=== PATIENT | male | born 1985 | race Caucasian/White ===

== ENCOUNTER → 2020-04-17 09:02 | Outpatient (BNVA) | payer MEDICAID, SELFPAY | PROVIDERS: Family Provider Internal Medicine; Visit Provider Psychiatry & Neurology Psychiatry | DX: F19.94 Other psychoactive substance use, unspecified with psychoactive substance-induced mood disorder (principal); F15.20 Other stimulant dependence, uncomplicated; F11.10 Opioid abuse, uncomplicated | CPT/HCPCS: 90792 ==

== ENCOUNTER 2020-06-10 08:08 | Emergency (ER) | payer MEDICAID, SELFPAY ==
[2020-06-10 08:10] VITALS: BP 131/95; PULSE 106; RESP 18; TEMP 36.9; O2SAT 97; BMI 25.0
--- NOTE | 2020-06-10 08:16 | XRR_ITS ---
PROCEDURE INFORMATION: Exam: XR Chest, 1 View Exam date and time: 06/10/2020 8:39 AM Age: 34 years old Clinical indication: Chest pain TECHNIQUE: Imaging protocol: XR of the chest Views: Frontal portable semiupright view of the chest. COMPARISON: CR Chest 2 views* [id number] 11/27/2018 4:56 PM FINDINGS: Lungs: The lungs are clear bilaterally. The pulmonary vasculature is normal. Pleural space: No pleural effusion. No pneumothorax. Heart/Mediastinum: The heart is normal in size and contour. Mediastinum: Stable. Bones/joints: Stable. XR/XR chest 1V portable [id number] IMPRESSION: No acute cardiopulmonary abnormality identified.
--- NOTE | 2020-06-10 08:17 | ECG_ITS ---
[facility] Test Date: 2020-06-10 Pat Name: Eugene Naidu Department: Room: Gender: Male Manager Spanish: : 1985 Requested By: Lanny Devine Order Number: [id number] Griffin MD: JORDYN SIMPSON Measurements Intervals [place] Rate: 107 P: 50 ND: 142 QRS: 35 QRSD: 80 T: 13 QT: 288 QTc: 385 Interpretive Statements SINUS TACHYCARDIA ABNORMAL RHYTHM ECG No previous ECG available for comparison Electronically Signed On 06-10-2020 19:15:04 STRIP DEBURRER by JORDYN SIMPSON [id number]
--- NOTE | 2020-06-10 08:18 | W.ED.GENADLT ---
HPI - General Adult General: Chief complaint: Chest Pain Stated complaint: back/chest pain Time Seen by Provider: 06/10/20 08:10 Source: patient Mode of arrival: ambulatory Limitations: no limitations History of Present Illness: HPI narrative: Mr. Naidu is a nice 34-year-old male comes in complaining of chest pain and shortness of breath. Patient admits to recently using methamphetamines has been having these problems ever since. He states that symptoms have been constant for the past 2 days. Patient states that he is never had anything like this before. He is unaware of any aggravating or alleviating factors. Describes the pain as a stabbing pain in his chest. Patient states that he feels nauseated but otherwise denies any diaphoresis, radiation of his pain, vomiting or otherwise. Patient seems somewhat anxious like he could be under the influence of methamphetamines. Associated symptoms: Reports chest pain, dyspnea and nausea; Deny headache(s), rash, palpitations, syncope or vomiting Review of Systems Const: Denies: fever(s) Eyes: Denies: change in vision or blurry vision ENMT: Denies: throat pain, hoarseness or swelling of lips/tongue Card: Reports: chest pain; Denies: palpitations, syncope, pre-syncope or dyspnea on exertion Resp: Reports: dyspnea; Denies: productive cough, non-productive cough, wheezing, change in phlegm color or hemoptysis GI: Reports: nausea; Denies: abdominal pain, vomiting or diarrhea : Denies: flank pain, dysuria, urinary frequency or urinary urgency Musc: Denies: neck pain, back pain or extremity pain Skin/Breast: Denies: rash or pruritus Neuro: Denies: headache(s), numbness in extremities, weakness in extremities or dizziness Shar/Lymph: Denies: easy bruising, easy bleeding, petechiae or purpura All/Imm: Denies: urticaria or throat swelling PFS ED PFSH: Medical History Hypertension Methamphetamine use disorder, severe Opiate abuse, continuous Substance induced mood disorder Social History Current gender identity: Male Physical Exam Const: COMMON NORMALS: no acute distress, patient oriented x3, no limitations and alert GENERAL APPEARANCE: cooperative HENMT: COMMON NORMALS: normocephalic, atraumatic, external ears normal, EAC's normal and Normal external nose present HEAD & SCALP: normal to inspection, normocephalic and atraumatic FACE & SINUS: normal facial exam and face symmetric NOSE: Normal external nose present and Normal nares present EXTERNAL EAR: Yes external ears normal EXTERNAL AUDITORY CANAL: EAC's normal MOUTH: Normal oral and palatal mucosa present, lip normal and tongue normal Eye: COMMON NORMALS: Equal, round and reactive pupils present and conjunctivae normal GENERAL EYE: appearance normal, both eyes and all related structures ALIGNMENT: Yes alignment normal PERIORBITAL: periorbital findings normal EYELID: eyelids normal CONJUNCTIVA: Yes conjunctivae normal SCLERA: sclerae normal PUPIL: Yes Equal, round and reactive pupils present Neck/C-Spine: COMMON NORMALS: full ROM, no lymphadenopathy, supple, no meningeal signs and no JVD GENERAL: Yes normal visual inspection and Yes trachea midline Chest: COMMONS NORMALS: normal inspection of the chest and normal palpation of entire chest wall Resp: COMMON NORMALS: normal respiratory effort, No retractions, No use of accessory muscles and clear to auscultation bilaterally EFFORT & INSPECTION: Yes able to speak in complete sentences and Yes symmetric chest movement AUSCULTATION: clear to auscultation bilaterally, no crackles, no rales, no rhonchi and no wheezes Cardio: COMMON NORMALS: no JVD, regular rate, regular rhythm, S1 normal heart sound present and S2 normal heart sound present RATE: regular rate RHYTHM: regular rhythm HEART SOUNDS: S1 normal heart sound present, S2 normal heart sound present, no click, no gallops, no murmurs and no rubs GI: COMMON NORMALS: Soft to palpation and No hepatosplenomegaly present PALPATION: Yes Soft to palpation, No Tenderness to palpation present (GI), No Guarding due to palpation present (GI), No Rigid due to palpation, Yes No hepatosplenomegaly present, No Hernia present, No Palpable mass present and No Pulsatile mass present : COMMON NORMALS: Yes no CVA tenderness BLADDER/KIDNEY EXAM: Yes no CVA tenderness Back/Pelvis: COMMON NORMALS: no CVA tenderness, thoracic and lumbar spine normal to inspection, no thoracic nor lumbar tenderness and thoraco-lumbar ROM normal Extremity: COMMON NORMALS: normal to inspection, full ROM, capillary refill normal, no joint enlargement, no clubbing, cyanosis or edema and no calf tenderness Neuro: COMMON NORMALS: patient oriented x3, CN's II-XII intact bilaterally, moves all extremities, no focal motor deficits and no sensory deficits noted SENSORIUM/ORIENTATION: Yes alert MENINGEAL SIGNS: Yes no meningeal signs SPEECH: speech normal Psych: COMMON NORMALS: mental status grossly normal, Normal thought process present, cooperative, normal affect, speech normal and activity/motor behavior normal SPEECH: Yes normal speech THOUGHT PROCESS: Normal thought process present Skin: COMMON NORMALS: no rashes or lesions noted, turgor normal, no jaundice, no petechiae and no mottling GENERAL SKIN EXAM: no rashes or lesions noted and turgor normal Course Vital Signs: Vital signs: Vital Signs Temperature 98.5 F 06/10/20 08:10 Pulse Rate 106 H 06/10/20 08:10 Respiratory Rate 18 06/10/20 08:10 Blood Pressure 131/95 06/10/20 08:10 Pulse Oximetry 97 06/10/20 08:10 MDM - General Adult MDM Narrative: Medical decision making narrative: 0959 -Mr. Naidu is a very nice 34-year-old male who comes in complaining of chest pain described as a burning in his chest along with shortness of breath. Patient state he had a mild headache with this as well. Patient is EKG and troponin are normal. Using the hospital chest pain pathway he is deemed safe for discharge as he is had almost 24 hours of constant pain and a negative troponin and EKG. Patient's heart score is 1, his EDACS score stratifications classifies him as low risk as well as the T-MACS decision aid which classifies him at 1% of risk. I recommended and offered to work the patient up further to include at least a second EKG and troponin but he refuses. He states of everything is fine at this point he wants to go home. His symptoms have resolved after headache treatment. He agrees to return should his symptoms change or worsen but at this time is ready for discharge. Patient Differential Diagnosis: Differential Diagnosis: Differential diagnosis includes acute coronary syndrome, aortic dissection, pulmonary embolism, hypertensive emergency, pneumonia, esophageal problems among many others. Lab Data: Attestation: I reviewed the patient's lab results. Labs: Lab Results 06/10/20 06/10/20 06/10/20 Range/Units 08:30 08:30 08:30 WBC 16.6 H (4.0-10.0) 10^3/ uL RBC 4.92 (4.1-5.3) 10^6/u L Hgb 15.9 (11.7-16.6) g/dL Hct 46.9 (42.0-52.0) % MCV 95.3 H (80-94) fL MCH 32.3 (28.0-34.0) pg MCHC 33.9 (30.0-36.0) g/dL RDW 12.6 (12.1-15.1) % Plt Count 350 (130-400) 10^3/c mm MPV 9.8 (7.4-10.4) fL Neut % (Auto) 83.2 % Lymph % (Auto) 8.4 % Anderson % (Auto) 7.7 % Eos % (Auto) 0.2 % Baso % (Auto) 0.1 % Neut # (Auto) 13.80 H (1.8-7.7) 10^3/u L Lymph # (Auto) 1.4 (0.8-4.8) 10^3/u L Anderson # (Auto) 1.3 H (0.2-0.9) 10^3/u L Eos # (Auto) 0.0 (0.0-0.8) 10^3/u L Baso # (Auto) 0.0 (0.0-0.1) 10^3/u L Nucleated RBC % (a uto) 0 % Nucleated RBCs # 0.0 /100WBC D-Dimer (0-0.59) ug/mIFE U Sodium 135 L (136-145) mmol/L Potassium 3.6 (3.5-5.1) mmol/L Chloride 98 (98-107) mmol/L Carbon Dioxide 25 (22-29) mmol/L Anion Gap 15.6 (5-19) BUN 10 (6-20) mg/dL Creatinine 1.1 (0.7-1.2) mg/dL GFR Calculation 76.2 L (90-130) mL/min Glucose 120 H (65-115) mg/dL Calculated Osmolal ity 280 L (285-295) mOsm/k g Lactic Acid (0.5-2.2) mmol/L Calcium 9.8 (8.5-10.5) mg/dL Magnesium 1.9 (1.7-2.3) mg/dL Total Bilirubin 0.3 (0.15-1.2) mg/dL AST 16 (0-40) U/L ALT 37 (0-41) U/L Alkaline Phosphata se 66 (40-130) IU/L Troponin T Baselin e 6 (0-15) ng/L Total Protein 7.0 (6.6-8.7) g/dL Albumin 4.6 (3.5-5.2) g/dL Globulin 2.4 (1.3-4.6) g/dL Lipase 13 (13-60) U/L 06/10/20 06/10/20 Range/Units 08:30 08:35 WBC (4.0-10.0) 10^3/ uL RBC (4.1-5.3) 10^6/u L Hgb (11.7-16.6) g/dL Hct (42.0-52.0) % MCV (80-94) fL MCH (28.0-34.0) pg MCHC (30.0-36.0) g/dL RDW (12.1-15.1) % Plt Count (130-400) 10^3/c mm MPV (7.4-10.4) fL Neut % (Auto) % Lymph % (Auto) % Anderson % (Auto) % Eos % (Auto) % Baso % (Auto) % Neut # (Auto) (1.8-7.7) 10^3/u L Lymph # (Auto) (0.8-4.8) 10^3/u L Anderson # (Auto) (0.2-0.9) 10^3/u L Eos # (Auto) (0.0-0.8) 10^3/u L Baso # (Auto) (0.0-0.1) 10^3/u L Nucleated RBC % (a uto) % Nucleated RBCs # /100WBC D-Dimer 0.31 (0-0.59) ug/mIFE U Sodium (136-145) mmol/L Potassium (3.5-5.1) mmol/L Chloride (98-107) mmol/L Carbon Dioxide (22-29) mmol/L Anion Gap (5-19) BUN (6-20) mg/dL Creatinine (0.7-1.2) mg/dL GFR Calculation (90-130) mL/min Glucose (65-115) mg/dL Calculated Osmolal ity (285-295) mOsm/k g Lactic Acid 1.1 (0.5-2.2) mmol/L Calcium (8.5-10.5) mg/dL Magnesium (1.7-2.3) mg/dL Total Bilirubin (0.15-1.2) mg/dL AST (0-40) U/L ALT (0-41) U/L Alkaline Phosphata se (40-130) IU/L Troponin T Baselin e (0-15) ng/L Total Protein (6.6-8.7) g/dL Albumin (3.5-5.2) g/dL Globulin (1.3-4.6) g/dL Lipase (13-60) U/L Imaging Data^: CXR: Attestation: I personally reviewed and interpreted this imaging study as follows: My impression: No acute cardiopulmonary findings. EKG Data^: EKG 1: Attestation: I personally reviewed and interpreted this EKG as follows: EKG interpretation date: 06/10/20 EKG interpretation time: 08:17 Interpretation: Sinus tachycardia at 107 beats a minute, no blocks, normal intervals, no acute ST-T wave changes. Computer generated interpretation: Chest X-Ray 06/10/20 08:16 IMPRESSION: No acute cardiopulmonary abnormality identified. EKG 2: Attestation: I personally reviewed and interpreted this EKG as follows: EKG interpretation date: 06/10/20 EKG interpretation time: 09:59 Interpretation: Normal sinus rhythm 109 beats a minute, normal axis, no blocks, normal intervals, no acute ST-T wave changes. Computer generated interpretation: Chest X-Ray 06/10/20 08:16 IMPRESSION: No acute cardiopulmonary abnormality identified. Discharge Plan Discharge Patient Disposition: Home Clinical Impression: Chest pain Qualifiers: Chest pain type: unspecified Qualified Code(s): R07.9 - Chest pain, unspecified Condition: Stable Prescriptions: No Action clonidine HCl 0.1 mg tablet 0.1 mg PO .Qhs PRNRF: 0 pantoprazole 40 mg tablet,delayed release (DR/EC) 40 mg PO DAILY RF: 0 trazodone 50 mg tablet 50 mg PO .Qhs PRNRF: 0 gabapentin 300 mg capsule 300 mg PO TID RF: 0 citalopram 20 mg tablet 20 mg PO DAILY RF: 0 cyclobenzaprine 10 mg tablet 10 mg PO BID PRNRF: 0 Discharge Orders: Discharge Order (Routine); Ordered 06/10/20 Ordered By: Lanny Guthrie Referrals: Vin Decker MD [Physician] - 1-3 days Discharge Diet: Advance as tolerated Discharge Activity: Increase activity as tolerated Patient Instructions: Chest Pain (ED) Activity Restrictions/Additional Instructions: Please return to the ER immediately for any of the signs or symptoms listed on your discharge instruction sheets, worsening/changing of your symptoms, you are not getting better as quickly as expected, or for ANY other cause or concerns. You have been offered further evaluation and care of your heart here to include further work-up with EKGs, troponins among many other things. Of course certain heart problems can be life-threatening so if you change your mind, your symptoms change/worsen or you have any other concerns you are more than welcome to return to the ER for recheck. You can begin to take a full-strength aspirin, 325 mg daily and avoid all stimulants illicit or otherwise to prevent any risk of heart attack. Coding Level of Care Code ED Scallop Cutter Machine for [place] Fwd Exam Comprehensive
[2020-06-10] MEDS: sodium chloride 0.9% 1,000 ML 999 ML IV (08:39)
[2020-06-10] MEDS: metoclopramide 5 mg/mL SDV 2 mL 10 MG IV (08:40)
[2020-06-10 08:52] LABS: Basophils % 0.1 %; Eosinophils % 0.2 %; Hematocrit 46.9 % (42.0-52.0); Hemoglobin 15.9 g/dL (11.7-16.6); Lymphocytes # 1.4 10^3/uL (0.8-4.8); Lymphocytes % 8.4 %; Mean Corpuscular HGB Conc 33.9 g/dL (30.0-36.0); Mean Corpuscular Hemoglobin 32.3 pg (28.0-34.0); Mean Corpuscular Volume 95.3 fL (80-94); Mean Platelet Volume 9.8 fL (7.4-10.4); Monocytes # 1.3 10^3/uL (0.2-0.9); Monocytes % 7.7 %; Neutrophils % 83.2 %; Nucleated Red Blood Cells % 0 %; Platelet Count 350 10^3/cmm (130-400); Red Blood Count 4.92 10^6/uL (4.1-5.3); Red Cell Distribution Width 12.6 % (12.1-15.1); White Blood Count 16.6 10^3/uL (4.0-10.0)
[2020-06-10 09:12] LABS: D Dimer 0.31 ug/mIFEU (0-0.59)
[2020-06-10 09:16] LABS: Alanine Aminotransferase 37 U/L (0-41); Albumin Level 4.6 g/dL (3.5-5.2); Alkaline Phosphatase 66 IU/L (40-130); Anion Gap 15.6 (5-19); Aspartate Amino Transferase 16 U/L (0-40); Blood Urea Nitrogen 10 mg/dL (6-20); Calcium 9.8 mg/dL (8.5-10.5); Carbon Dioxide 25 mmol/L (22-29); Chloride 98 mmol/L (98-107); Globulin 2.4 g/dL (1.3-4.6); Glomerular Filtration Rate 76.2 mL/min (90-130); Glucose 120 mg/dL (65-115); Lipase 13 U/L (13-60); Magnesium 1.9 mg/dL (1.7-2.3); Osmolality Calculated 280 mOsm/kg (285-295); Potassium 3.6 mmol/L (3.5-5.1); Sodium 135 mmol/L (136-145); Total Bilirubin 0.3 mg/dL (0.15-1.2)
[2020-06-10 09:17] LABS: Troponin(5th) Baseline 6 ng/L (0-15)
[2020-06-10 09:17] LABS: Lactic Sepsis W/Reflex 1.1 mmol/L (0.5-2.2)
[2020-06-10] MEDS: HYDROcodone-acetaminophen 5-325 mg Tablet 1 TAB PO (10:13)
--- NOTE | 2020-06-10 10:17 | ECG_ITS ---
[facility] Test Date: 2020-06-10 Pat Name: Eugene Naidu Department: Room: Gender: Male Slip Dumper: : 1985 Requested By: Lanny Devine Order Number: [id number] Griffin MD: JORDYN SIMPSON Measurements Intervals [place] Rate: 109 P: 53 AK: 147 QRS: 40 QRSD: 82 T: 2 QT: 302 QTc: 407 Interpretive Statements SINUS TACHYCARDIA ABNORMAL RHYTHM ECG Compared to ECG 06/10/2020 08:17:40 No significant changes Electronically Signed On 06-10-2020 19:16:05 DIRECTOR DIABETES by JORDYN SIMPSON [id number]
[2020-06-10 10:37] VITALS: BP 117/86; PULSE 117; RESP 18; O2SAT 97
== END 2020-06-10 10:38 | disposition home or self-care (01) ==
PROVIDERS: Emergency Provider Emergency Medicine
DX: R07.9 Chest pain, unspecified (principal); I10 Essential (primary) hypertension
CPT/HCPCS: 12345; 71045; 80053; 83605; 83690; 83735; 84484; 85025; 85378; 93005; 96361; 96374; 99282; 99284; J2765; J7030

== ENCOUNTER 2021-09-17 21:02 | Emergency (ER) | payer BC, MEDICAID, SELFPAY ==
[2021-09-17 21:05] VITALS: BP 144/68; PULSE 88; RESP 18; O2SAT 99; BMI 23.5
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
[2021-09-17 21:26] LABS: Basophils % 0.2 %; Eosinophils # 0.2 10^3/uL (0.0-0.8); Eosinophils % 1.1 %; Hematocrit 44.1 % (42.0-52.0); Hemoglobin 14.9 g/dL (11.7-16.6); Lymphocytes # 1.6 10^3/uL (0.8-4.8); Lymphocytes % 9.8 %; Mean Corpuscular HGB Conc 33.8 g/dL (30.0-36.0); Mean Corpuscular Hemoglobin 31.9 pg (28.0-34.0); Mean Corpuscular Volume 94.4 fl (80-94); Mean Platelet Volume 9.7 fL (7.4-10.4); Monocytes % 6.3 %; Neutrophils # 13.41 10^3/uL (1.8-7.7); Neutrophils % 82.3 %; Nucleated Red Blood Cells % 0 %; Platelet Count 419 10^3/cmm (130-400); Red Blood Count 4.67 10^6/uL (4.1-5.3); Red Cell Distribution Width 13.2 % (12.1-15.1); White Blood Count 16.3 10^3/uL (4.0-10.0)
[2021-09-17] MEDS: iohexol 300 mg/mL 100 mL Btl IV (21:33)
[2021-09-17] MEDS: lactated ringers 1,000 ML 999 ML IV (21:45)
[2021-09-17] MEDS: ketorolac 60 mg/2 mL INJ 30 MG IVP (22:47)
--- NOTE | 2021-09-17 22:53 | PC.NURSE ---
pt removed pulse ox monitor and blood culture cuff
[2021-09-17 22:56] LABS: Alanine Aminotransferase 36 U/L (0-41); Albumin Level 4.2 g/dL (3.5-5.2); Alkaline Phosphatase 63 IU/L (40-130); Aspartate Amino Transferase 38 U/L (0-40); Blood Urea Nitrogen 19 mg/dL (6-20); Calcium 9.2 mg/dL (8.5-10.5); Carbon Dioxide 24 mmol/L (22-29); Chloride 98 mmol/L (98-107); Globulin 1.8 g/dL (1.3-4.6); Glomerular Filtration Rate 84.1 mL/min (90-130); Glucose 135 mg/dL (65-115); Lipase 18 U/L (13-60); Osmolality Calculated 282 mOsm/kg (285-295); Sodium 134 mmol/L (136-145); Total Bilirubin 0.4 mg/dL (0.15-1.2)
[2021-09-17 23:55] VITALS: BP 120/82; PULSE 87; RESP 16; O2SAT 98
--- NOTE | 2021-09-23 11:31 | DCPLANNER ---
Addendum entered by Rosetta Razo 10/02/21 14:56: Patient had a follow up appointment scheduled for 09.26.[address] Potts - patient did not attend appointment. Addendum entered by Rosetta Razo 09/24/21 05:57: Patient has a follow up appointment scheduled for September at 3:[address] Potts. Clinic will call patient with appointment information. Original Note: manager ob had message to schedule a follow up appointment for patient with Dr. Potts. manager ob emailed patients information to Evan Goff and Julie in the office of Dr. Potts. Patients information will be printed and reviewed. Clinic will call patient with appointment information.
== END 2021-09-18 00:01 | disposition home or self-care (01) ==
PROVIDERS: Emergency Provider Physician Assistant; PCP Internal Medicine
DX: N20.1 Calculus of ureter (principal); I10 Essential (primary) hypertension; F17.210 Nicotine dependence, cigarettes, uncomplicated
CPT/HCPCS: 36415; 74177; 80053; 83690; 85025; 96361; 96374; 99284; J1885; Q9967

== ENCOUNTER 2021-09-25 00:30 | Emergency (ER) | payer BC, MEDICAID, SELFPAY ==
[2021-09-25 00:30] VITALS: BP 145/97; PULSE 81; RESP 16; TEMP 36.6; O2SAT 98; BMI 21.1
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
== END 2021-09-25 00:51 | disposition left against medical advice (07) ==
PROVIDERS: Emergency Provider Physician Assistant; PCP Internal Medicine
DX: Z04.1 Encounter for examination and observation following transport accident (principal); V47.5XXA Car driver injured in collision with fixed or stationary object in traffic accident, initial encounter; I10 Essential (primary) hypertension
CPT/HCPCS: 99281

== ENCOUNTER → 2021-11-15 13:23 | Outpatient (BNVA) | payer BC, MEDICAID, SELFPAY | PROVIDERS: PCP Internal Medicine; Visit Provider Nurse Practitioner Psychiatric/Mental Health | DX: F15.20 Other stimulant dependence, uncomplicated (principal); F17.200 Nicotine dependence, unspecified, uncomplicated; F29 Unspecified psychosis not due to a substance or known physiological condition; Z03.89 Encounter for observation for other suspected diseases and conditions ruled out | CPT/HCPCS: 90792; 80053 ==

== ENCOUNTER → 2021-12-03 09:57 | Outpatient (BNVA) | payer BC, MEDICAID, SELFPAY | PROVIDERS: PCP Internal Medicine; Visit Provider Nurse Practitioner Psychiatric/Mental Health | DX: F29 Unspecified psychosis not due to a substance or known physiological condition (principal); F15.20 Other stimulant dependence, uncomplicated; F17.200 Nicotine dependence, unspecified, uncomplicated; Z79.899 Other long term (current) drug therapy | CPT/HCPCS: 99214 ==

== ENCOUNTER → 2022-01-03 12:37 | Outpatient (BNVA) | payer BC, MEDICAID, SELFPAY | PROVIDERS: PCP Internal Medicine; Visit Provider Nurse Practitioner Psychiatric/Mental Health | DX: F29 Unspecified psychosis not due to a substance or known physiological condition (principal); F17.200 Nicotine dependence, unspecified, uncomplicated; F15.20 Other stimulant dependence, uncomplicated; Z03.89 Encounter for observation for other suspected diseases and conditions ruled out | CPT/HCPCS: 99214 ==

== ENCOUNTER → 2022-02-27 10:04 | Outpatient (BNVA) | payer OTHER, SELFPAY | PROVIDERS: PCP Internal Medicine; Visit Provider Nurse Practitioner Psychiatric/Mental Health | DX: Z79.899 Other long term (current) drug therapy (principal); Z03.89 Encounter for observation for other suspected diseases and conditions ruled out | CPT/HCPCS: 80053; 80061; 83036 ==

== ENCOUNTER → 2022-06-02 14:06 | Outpatient (BNVA) | payer BC, SELFPAY ==
[2022-03-04 10:17] VITALS: BP 130/97; BMI 26.9
== END ==
PROVIDERS: PCP Internal Medicine; Visit Provider Nurse Practitioner Psychiatric/Mental Health
DX: Z79.899 Other long term (current) drug therapy (principal); F15.20 Other stimulant dependence, uncomplicated; F29 Unspecified psychosis not due to a substance or known physiological condition; F17.200 Nicotine dependence, unspecified, uncomplicated
CPT/HCPCS: 80053; 80306

== ENCOUNTER → 2022-09-23 15:58 | Outpatient (BNVA) | payer BC, SELFPAY ==
[2022-03-04 10:17] VITALS: BP 130/97; BMI 26.9
== END ==
PROVIDERS: PCP Internal Medicine; Visit Provider Nurse Practitioner Psychiatric/Mental Health
DX: Z79.899 Other long term (current) drug therapy (principal)
CPT/HCPCS: 80053; 80307

== ENCOUNTER → 2023-01-16 11:04 | Outpatient (BNVA) | payer BC, SELFPAY ==
[2022-03-04 10:17] VITALS: BP 130/97; BMI 26.9
== END ==
PROVIDERS: PCP Internal Medicine; Visit Provider Nurse Practitioner Psychiatric/Mental Health
DX: Z79.899 Other long term (current) drug therapy (principal)
CPT/HCPCS: 80053; 80061; 80307; 83036

== ENCOUNTER → 2023-12-24 09:29 | Outpatient (BNVA) | payer BC, SELFPAY ==
[2023-03-09 11:10] VITALS: BP 126/94; BMI 26.8
== END ==
PROVIDERS: PCP Internal Medicine; Visit Provider Nurse Practitioner Psychiatric/Mental Health
DX: Z79.899 Other long term (current) drug therapy (principal)
CPT/HCPCS: 80053; 80061; 83036

== ENCOUNTER → 2024-08-22 11:36 | Outpatient (BNVA) | payer BC, SELFPAY ==
[2024-01-05 15:06] VITALS: BP 141/92; BMI 28.2
== END ==
PROVIDERS: PCP Internal Medicine; Visit Provider Nurse Practitioner Psychiatric/Mental Health
DX: Z79.899 Other long term (current) drug therapy (principal)
CPT/HCPCS: 80053